=== PATIENT | male | born 1980 | race Caucasian/White ===

== ENCOUNTER 2018-01-07 12:34 | Emergency (ER) | payer MEDICAID, SELFPAY ==
[2018-01-07 12:52] VITALS: BP 136/85; PULSE 89; RESP 16; TEMP 37.2; O2SAT 98
--- NOTE | 2018-01-08 08:27 | W.ED.FU ---
Patient came to the emergency department complaining of ear pain. Due to the acuity number of patients in the department, there was a wait for him to be seen. However, prior to my evaluating the patient he eloped. He did not discuss with nursing staff and or was secretarial staff outside the department aware of his departure. Patient was never evaluated by myself. He has reviewed nursing notes and did attempt to find the patient in the department, notified him already departed
== END 2018-01-07 15:45 ==
LOC: ER 17:02
PROVIDERS: Emergency Provider Physician Assistant
DX: Z53.29 Procedure and treatment not carried out because of patient's decision for other reasons (principal)

== ENCOUNTER 2018-07-15 07:49 | Emergency (ER) | payer MEDICAID, SELFPAY ==
[2018-07-15 07:59] VITALS: BP 161/93; PULSE 97; RESP 16; TEMP 36.4; O2SAT 97
--- NOTE | 2018-07-15 08:12 | DI.RAD_ITS ---
SYMPTOM/DIAGNOSIS: S/P TWISTING INJURY, FELL, PAIN, ? FX RIGHT ANKLE: There is soft tissue swelling greatest around the lateral malleolus. No acute fracture or ankle mortise widening is seen. There is an old non united fracture of the medial malleolus. IMPRESSION: Old medial malleolar fracture. No evidence of an acute fracture. RIGHT FOOT: No acute fracture or dislocation is seen. There are mild degenerative changes. IMPRESSION: No acute abnormality.
--- NOTE | 2018-07-15 08:13 | W.ED.GENAD ---
Discharge Plan Disposition Patient Disposition: HOME Condition: Stable Discharge Details Chief Complaint: Orthopedic Clinical Impression: Right ankle sprain, Ankle fracture, right Primary Care Provider: None,None ED Provider: Iraida Goodman Home Meds and New Rx's Prescriptions: New naproxen 250 mg tablet 250 mg PO BID PRN (Reason: pain) Qty: 20 RF: 0 Discharge Instructions Instructions: Ankle Fracture (ED), Ankle Sprain (ED) Additional Instructions: Alternate tylenol and naproxen as needed and directed for pain. Take the oxycodone for pain not relieved with tylenol or naproxen. You may only have an ankle sprain. Your xray noted an old ankle fracture. Since you have pain in this area, there may be a new fracture that is not evident on xray. Use your crutches for ambulation. Do not bear weight on your right ankle. Call orthopedics tomorrow morning to schedule follow-up appointment for reevaluation. Return immediately to the emergency department any worsening or new concerning symptoms. Referrals: Sae Farrell MD [ [facility] STAFF PHYSICIAN] - Discharge Data Discharge Date/Time-TO BE ENTERED AT DEPARTURE: 07/15/18 10:52 Discharge Physician: Iraida Goodman Medical Decision Making 38-year-old male w/ a h/o Reflex sympathetic dystrophy who presents with right ankle and foot pain after slipping while shoveling the driveway yesterday. Last dose of ibuprofen and Tylenol 3 hours ago. He has tenderness to palpation of the right lateral malleolus and right lateral dorsal foot. Neurovascularly intact. No deformity. No proximal leg or knee tenderness, edema or ecchymosis. We will send for right ankle and foot x-ray. 1010 -- X-rays reviewed and note a well-corticated fracture of the medial malleolus with 2 mm distraction which appears chronic. Patient initially complained of pain mainly in the right lateral ankle. He now states he also has pain in the medial ankle. Although this fracture appears old, with complaint of pain in this area, will treat as a possible new fracture. Posterior splint placed and patient given crutches. Patient placed on orthopedic follow-up list. Will send home with 2 tabs of oxycodone. Patient also requested a prescription for anti-inflammatories. Patient instructed to rest, ice, elevate and to call orthopedics tomorrow morning for a follow-up appointment for a re-evaluation and whether CT indicated at a later date for further evaluation. He is instructed to return here at any time if worse. Medical Records Medical records reviewed: Yes I reviewed the patient's medical records. Imaging Data Radiologic Study: Radiologist's impression: XR Right Ankle Complete, 3 or more Views EXAM DATE/TIME: 07/15/2018 8:13 AM FINDINGS: Bones/joints: Well-corticated fracture medial malleolus with 2 mm distraction. Appears chronic. Clinical correlation necessary. No acute fracture identified. Soft tissues: Lateral soft tissue swelling. IMPRESSION: 1. Well-corticated fracture medial malleolus with 2 mm distraction. Appears chronic. Clinical correlation necessary. 2. No acute fracture identified. 3. Lateral soft tissue swelling. XR Right Foot Complete, 3 or more Views EXAM DATE/TIME: 07/15/2018 8:13 AM FINDINGS: Bones/joints: No acute fracture. No dislocation. Soft tissues: Normal. IMPRESSION: No acute findings. HPI General Mode of arrival: ambulatory. Date/Time Provider Initiated Documentation: 07/15/18 08:02. Limitations to Documentation: no limitations. Information obtained by: patient. HPI Narrative: Patient is a 38-year-old male presents with right ankle and foot pain after twisting injury yesterday. Patient states he was at home shoveling his driveway when he twisted and rolled his ankle. Patient states he has a history of reflex sympathetic dystrophy status post a left foot and ankle fracture several years ago. Patient states he is easily prone to fractures in his legs due to this. He last took ibuprofen and Tylenol 3 hours ago at home. He denies any hip, knee or upper leg injury or pain. Related Data Home Medications Medication Instructions Recorded Confirmed naproxen 250 mg PO BID PRN #20 tab 07/15/18 Previous Rx's Medication Instructions Recorded naproxen 250 mg PO BID PRN #20 tab 07/15/18 Allergies Allergy/AdvReac Type Severity Reaction Status Date / Time codeine Allergy Intermediate Hives Unverified 07/15/18 08:03 General Stated Complaint: Orthopedic KENTRELL: 4 Review of Systems Review of Systems All systems reviewed & are unremarkable except as noted in HPI and below [facility] Medical History RSD lower limb (Acute) Angina pectoris (Chronic) Surgical History History of ankle surgery (Acute) History of foot surgery (Acute) Social History Smoking/Tobacco Use Status: Current every day Tobacco Type: cigarettes Smoking cigarettes per day: 5 Alcohol Intake: never Drug use: Never Substance use type: does not use Do you feel safe in your relationship?: Yes Exam Const General: cooperative, healthy appearing and no acute distress HENMT Head: normal to inspection Mouth: oral mucosae normal Eyes General: appearance normal, both eyes and all related structures Neck Neck: normal visual inspection Resp Effort & Inspection: normal respiratory effort and able to speak in complete sentences Cardio Rate: regular rate Skin General skin exam: no rashes or lesions noted Neuro General: alert, awake and oriented x3 Motor: muscle tone normal throughout Extrem Right lower extremity: knee Details: normal to inspection and normal ROM; no tenderness and no swelling, lower leg Details: normal to inspection and no edema; no tenderness, ankle Details: tenderness Location: of the lateral malleolus and anterolaterally, swelling Details: laterally and anteriorly and abnormal ROM Details: pain with active ROM and pain with passive ROM and foot Details: tenderness Location: of the dorsal foot, of the lateral foot and of the base of the 5th metatarsal and vascular exam Details: dorsalis pedis pulse present and posterior tibial pulse present Psych Appearance: grossly normal Affect: normal affect Course Vital Signs Temperature 97.5 F L 07/15/18 07:59 Pulse 97 H 07/15/18 07:59 Respiratory Rate 16 07/15/18 07:59 Blood Pressure 161/93 H 07/15/18 07:59 Pulse Oximetry 97 07/15/18 07:59 Temperature 97.5 F L 07/15/18 07:59 Temperature Source Skin 07/15/18 07:59 Pulse 97 H 07/15/18 07:59 Respiratory Rate 16 07/15/18 07:59 Respiratory Effort Non-Labored 07/15/18 07:59 Blood Pressure 161/93 H 07/15/18 07:59 Blood Pressure Position Sitting 07/15/18 07:59 Pulse Oximetry 97 07/15/18 07:59 Pain Level 10 07/15/18 08:03 Procedures Orthopedic Splinting/Casting Injury #1: Side: right Lower Extremity Injury Location: ankle Lower Extremity Immobilizer: posterior splint Other Orthopedic Equipment: crutches
--- NOTE | 2018-07-15 08:19 | ED.GENADUL_ITS ---
Discharge Plan Disposition Patient Disposition: HOME Condition: Stable Discharge Details Chief Complaint: Orthopedic Clinical Impression: Right ankle sprain, Ankle fracture, right Primary Care Provider: None,None ED Provider: Iraida Goodman Home Meds and New Rx's Prescriptions: New naproxen 250 mg tablet 250 mg PO BID PRN (Reason: pain) Qty: 20 RF: 0 Discharge Instructions Instructions: Ankle Fracture (ED), Ankle Sprain (ED) Additional Instructions: Alternate tylenol and naproxen as needed and directed for pain. Take the oxycodone for pain not relieved with tylenol or naproxen. You may only have an ankle sprain. Your xray noted an old ankle fracture. Since you have pain in this area, there may be a new fracture that is not evident on xray. Use your crutches for ambulation. Do not bear weight on your right ankle. Call orthopedics tomorrow morning to schedule follow-up appointment for reevaluation. Return immediately to the emergency department any worsening or new concerning symptoms. Referrals: Sae Farrell MD [ [facility] STAFF PHYSICIAN] - Discharge Data Discharge Date/Time-TO BE ENTERED AT DEPARTURE: 07/15/18 10:52 Discharge Physician: Iraida Goodman Medical Decision Making 38-year-old male w/ a h/o Reflex sympathetic dystrophy who presents with right ankle and foot pain after slipping while shoveling the driveway yesterday. Last dose of ibuprofen and Tylenol 3 hours ago. He has tenderness to palpation of the right lateral malleolus and right lateral dorsal foot. Neurovascularly intact. No deformity. No proximal leg or knee tenderness, edema or ecchymosis. We will send for right ankle and foot x-ray. 1010 -- X-rays reviewed and note a well-corticated fracture of the medial malleolus with 2 mm distraction which appears chronic. Patient initially complained of pain mainly in the right lateral ankle. He now states he also has pain in the medial ankle. Although this fracture appears old, with complaint of pain in this area, will treat as a possible new fracture. Posterior splint placed and patient given crutches. Patient placed on orthopedic follow-up list. Will send home with 2 tabs of oxycodone. Patient also requested a prescription for anti-inflammatories. Patient instructed to rest, ice, elevate and to call orthopedics tomorrow morning for a follow-up appointment for a re-evaluation and whether CT indicated at a later date for further evaluation. He is instructed to return here at any time if worse. Medical Records Medical records reviewed: Yes I reviewed the patient's medical records. Imaging Data Radiologic Study: Radiologist's impression: XR Right Ankle Complete, 3 or more Views EXAM DATE/TIME: 07/15/2018 8:13 AM FINDINGS: Bones/joints: Well-corticated fracture medial malleolus with 2 mm distraction. Appears chronic. Clinical correlation necessary. No acute fracture identified. Soft tissues: Lateral soft tissue swelling. IMPRESSION: 1. Well-corticated fracture medial malleolus with 2 mm distraction. Appears chronic. Clinical correlation necessary. 2. No acute fracture identified. 3. Lateral soft tissue swelling. XR Right Foot Complete, 3 or more Views EXAM DATE/TIME: 07/15/2018 8:13 AM FINDINGS: Bones/joints: No acute fracture. No dislocation. Soft tissues: Normal. IMPRESSION: No acute findings. HPI General Mode of arrival: ambulatory . Date/Time Provider Initiated Documentation: 07/15/18 08:02 . Limitations to Documentation: no limitations . Information obtained by: patient . HPI Narrative: Patient is a 38-year-old male presents with right ankle and foot pain after twisting injury yesterday. Patient states he was at home shoveling his driveway when he twisted and rolled his ankle. Patient states he has a history of reflex sympathetic dystrophy status post a left foot and ankle fracture several years ago. Patient states he is easily prone to fractures in his legs due to this. He last took ibuprofen and Tylenol 3 hours ago at home. He denies any hip, knee or upper leg injury or pain. Related Data Home Medications Medication Instructions Recorded Confirmed naproxen 250 mg PO BID PRN #20 tab 07/15/18 Previous Rx's Medication Instructions Recorded naproxen 250 mg PO BID PRN #20 tab 07/15/18 Allergies Allergy/AdvReac Type Severity Reaction Status Date / Time codeine Allergy Intermediate Hives Unverified 07/15/18 08:03 General Stated Complaint: Orthopedic KENTRELL: 4 Review of Systems Review of Systems All systems reviewed & are unremarkable except as noted in HPI and below [facility] Medical History RSD lower limb (Acute) Angina pectoris (Chronic) Surgical History History of ankle surgery (Acute) History of foot surgery (Acute) Social History Smoking/Tobacco Use Status: Current every day Tobacco Type: cigarettes Smoking cigarettes per day: 5 Alcohol Intake: never Drug use: Never Substance use type: does not use Do you feel safe in your relationship?: Yes Exam Const General: cooperative, healthy appearing and no acute distress HENMT Head: normal to inspection Mouth: oral mucosae normal Eyes General: appearance normal, both eyes and all related structures Neck Neck: normal visual inspection Resp Effort & Inspection: normal respiratory effort and able to speak in complete sentences Cardio Rate: regular rate Skin General skin exam: no rashes or lesions noted Neuro General: alert, awake and oriented x3 Motor: muscle tone normal throughout Extrem Right lower extremity: knee Details: normal to inspection and normal ROM; no tenderness and no swelling, lower leg Details: normal to inspection and no edema; no tenderness, ankle Details: tenderness Location: of the lateral malleo kylie and anterolaterally, swelling Details: laterally and anteriorly and abnormal ROM Details: pain with active ROM and pain with passive ROM and foot Details: tenderness Location: of the dorsal foot, of the lateral foot and of the base of the 5th metatarsal and vascular exam Details: dorsalis pedis pulse present and posterior tibial pulse present Psych Appearance: grossly normal Affect: normal affect Course Vital Signs Temperature 97.5 F L 07/15/18 07:59 Pulse 97 H 07/15/18 07:59 Respiratory Rate 16 07/15/18 07:59 Blood Pressure 161/93 H 07/15/18 07:59 Pulse Oximetry 97 07/15/18 07:59 Temperature 97.5 F L 07/15/18 07:59 Temperature Source Skin 07/15/18 07:59 Pulse 97 H 07/15/18 07:59 Respiratory Rate 16 07/15/18 07:59 Respiratory Effort Non-Labored 07/15/18 07:59 Blood Pressure 161/93 H 07/15/18 07:59 Blood Pressure Position Sitting 07/15/18 07:59 Pulse Oximetry 97 07/15/18 07:59 Pain Level 10 03/24/19 08:03 Procedures Orthopedic Splinting/Casting Injury #1: Side: right Lower Extremity Injury Location: ankle Lower Extremity Immobilizer: posterior splint Other Orthopedic Equipment: crutches
--- NOTE | 2018-07-15 09:13 | DI.VRAD_ITS ---
EXAM: XR Right Ankle Complete, 3 or more Views EXAM DATE/TIME: 07/15/2018 8:13 AM CLINICAL HISTORY: 38 years old, male; Signs and symptoms; Other: S/P twisting injury r ankle, R/O acute fracture TECHNIQUE: Imaging protocol: XR Right ankle 3 or more views. COMPARISON: No relevant prior studies available. FINDINGS: Bones/joints: Well-corticated fracture medial malleolus with 2 mm distraction. Appears chronic. Clinical correlation necessary. No acute fracture identified. Soft tissues: Lateral soft tissue swelling. IMPRESSION: 1. Well-corticated fracture medial malleolus with 2 mm distraction. Appears chronic. Clinical correlation necessary. 2. No acute fracture identified. 3. Lateral soft tissue swelling. Dictated and Authenticated by: Bessy Bearden MD. Ordering:JOSE ALBERTO Khoury MD
--- NOTE | 2018-07-15 09:19 | DI.VRAD_ITS ---
EXAM: XR Right Foot Complete, 3 or more Views EXAM DATE/TIME: 07/15/2018 8:13 AM CLINICAL HISTORY: 38 years old, male; Signs and symptoms; Other: S/P twisting injury r ankle/foot, R/O fracture TECHNIQUE: Imaging protocol: XR Right foot 3 or more views. COMPARISON: No relevant prior studies available. FINDINGS: Bones/joints: No acute fracture. No dislocation. Soft tissues: Normal. IMPRESSION: No acute findings. Dictated and Authenticated by: Bessy Bearden MD. Ordering:JOSE ALBERTO Khoury MD
[2018-07-15] MEDS: oxyCODONE 5 MG TAB (10:15)
[2018-07-15] MEDS: oxyCODONE 5 MG TAB 10 MG PO (10:30)
== END 2018-07-15 10:52 | disposition home or self-care (01) ==
PROVIDERS: Emergency Provider Physician Assistant
DX: S93.401A Sprain of unspecified ligament of right ankle, initial encounter (principal); W00.0XXA Fall on same level due to ice and snow, initial encounter; Z87.81 Personal history of (healed) traumatic fracture; G90.521 Complex regional pain syndrome I of right lower limb
CPT/HCPCS: 99284; 73610; 73630; 99283; E0114

== ENCOUNTER 2019-05-20 23:13 | Emergency (ER) | payer MEDICAID, SELFPAY ==
[2019-05-20 23:22] VITALS: BP 160/110; PULSE 107; RESP 18; TEMP 37; O2SAT 99
--- NOTE | 2019-05-20 23:29 | W.ED.GENAD ---
Discharge Plan Disposition Patient Disposition: HOME Condition: Good Discharge Details Chief Complaint: DentalOral Clinical Impression: Tooth fractures, Dental infection Primary Care Provider: None,None ED Provider: Tab Mckeon Meds and New Rx's Prescriptions: New Oxycodone, 4 Tabs/Btl [Roxicodone, 4 Tabs/Btl] 5 mg PO BID Qty: 4 RF: 0 amoxicillin-pot clavulanate [Augmentin] 875-125 mg tablet 1 tab PO BID Qty: 20 RF: 0 Continued naproxen 250 mg tablet 250 mg PO BID PRN (Reason: pain) Qty: 20 RF: 0 Discharge Instructions Instructions: Dental Abscess (ED), Acute Dental Trauma (ED) Additional Instructions: Neither the dental block or the infraorbital nerve block seems to be adequate for pain control. Therefore use oxycodone for pain tonight. Start Augmentin for infection. Call dentistry in the morning for follow-up. Return to ED for fever, facial swelling/redness, difficulty breathing, inability to swallow. Medical Decision Making Patient here with multiple acute tooth fractures involving the front upper teeth. Gingival tenderness and edema but no overt abscess. He reports squeezing pus out earlier. Face is normal other than tenderness in the maxilla area on the right. [id number] pain medicine not helping. Discussed individual alveolar dental block versus infraorbital block. Patient more comfortable with dental block. Benzocaine applied to the mucosal membrane. Dental blocks attempted x2 with inadequate pain relief. Patient verbally consented to infraorbital block. This was done through the oral mucosal membranes as opposed to through the face. Notch palpated and needle felt with good placement of bupivacaine and area. Patient obtained facial and lip anesthesia completely but continued to complain of throbbing pain. Patient will be referred to dentistry. He is started on Augmentin. He is given for oxycodone to go home with for use tonight and tomorrow until he can get into dentistry. State information sheet given on narcotics. Informed consent signed. Patient asked to return for fever, increased facial swelling or redness, difficulty breathing, inability to swallow. HPI General Mode of arrival: ambulatory. Date/Time Provider Initiated Documentation: 05/20/19 23:29. Limitations to Documentation: no limitations. Information obtained by: patient and RN notes reviewed. HPI Narrative: Patient presents to ED with right upper dental pain that has been present for a couple of days after breaking off a couple of his teeth biting into a chocolate chip cookie. Acutely worse this afternoon and unbearable tonight. Reports squeezing pus out of his gum earlier this evening. Has been using Orajel, Tylenol, Motrin without relief. Denies fever, facial swelling, redness. No difficulty breathing. Hard to eat or drink because of pain. Has poor dentition throughout and has chronic dental pain but this is much worse than he is ever experienced. Related Data Home Medications Medication Instructions Recorded Confirmed naproxen 250 mg PO BID PRN #20 tab 07/15/18 05/21/19 amoxicillin-pot clavulanate 1 tab PO BID #20 tab 05/21/19 [Augmentin] oxyCODONE, 4 tabs/btl [Roxicodone, 5 mg PO BID #4 tab 05/21/19 4 tabs/btl] Previous Rx's Medication Instructions Recorded naproxen 250 mg PO BID PRN #20 tab 07/15/18 amoxicillin-pot clavulanate 1 tab PO BID #20 tab 05/21/19 [Augmentin] oxyCODONE, 4 tabs/btl [Roxicodone, 5 mg PO BID #4 tab 05/21/19 4 tabs/btl] Allergies Allergy/AdvReac Type Severity Reaction Status Date / Time codeine Allergy Intermediate Hives Unverified 05/21/19 00:05 General KENTRELL: 4 Review of Systems Constitutional Constitutional: Denies fever(s) ENT Ears, Nose, Mouth, and Throat: Reports dental pain, Denies lip swelling, Denies neck pain, Denies throat swelling and Denies tongue swelling Cardiovascular Cardiovascular: Denies dyspnea Respiratory Respiratory: Denies dyspnea Musculoskeletal Musculoskeletal: Denies neck pain Allergic/Immunologic Allergic/Immunologic: Denies lip swelling, Denies throat swelling and Denies tongue swelling [facility] Medical History RSD lower limb (Acute) Surgical History History of ankle surgery (Acute) History of foot surgery (Acute) Social History Smoking/Tobacco Use Status: Current every day Tobacco Type: cigarettes Alcohol Intake: never Drug use: Never Substance use type: does not use Do you feel safe at home: Yes Do you feel safe in your relationship?: Yes Exam Const General: cooperative and acute distress (pain) Orientation: alert and oriented x3 HENMT Head: normocephalic and atraumatic Face and sinus: no erythema, no edema, no fluctuance and tenderness on the right maxilla Mouth: oral mucosae normal, lip normal and tongue normal Teeth and gingiva: gingiva abnormal edematous (right upper) and tender; without any purulent discharge, poor dentition and other (chronic decay with acute fractures of teeth 4,5,6 at gumline) Neck Neck: trachea midline and supple Procedures Nerve Block Nerve Block 1: Local Anesthetic: Bupivicaine 0.5% Amount of anesthesia used (mL): 3 Side: right Intraoral Nerve Block: supraperiosteal Procedure Successful: No Patient Tolerated Procedure: no complications Complications: inadequate anesthesia Additional Comments: two attempts at blocking just the teeth involved as patient not comfortable with infra orbital block; unsuccessful Nerve Block 2: Local Anesthetic: Bupivicaine 0.5% Amount of anesthesia used (mL): 2.5 Side: right Intraoral Nerve Block: infraorbital Patient Tolerated Procedure: no complications Complications: inadequate anesthesia Additional Comments: face and lip completely numb but still having pain
[2019-05-21] MEDS: Benzocaine 20% Gel 30 GM JAR MM (00:04)
[2019-05-21] MEDS: Bupivacaine 0.5% Pres-Free 30 ML VIAL IJ (00:04)
[2019-05-21] MEDS: Amoxicillin 875/Clav. 125 TAB PO (01:03)
== END 2019-05-21 01:15 | disposition home or self-care (01) ==
LOC: ER 05-21 01:11
PROVIDERS: Emergency Provider Emergency Medicine
DX: S02.5XXA Fracture of tooth (traumatic), initial encounter for closed fracture (principal); X58.XXXA Exposure to other specified factors, initial encounter; K04.7 Periapical abscess without sinus
CPT/HCPCS: 64450

== ENCOUNTER 2023-05-03 22:34 | Emergency (ER) | payer MEDICAID, SELFPAY ==
[2023-05-03 22:42] VITALS: BP 159/103; PULSE 84; RESP 18; TEMP 37.1; O2SAT 98
--- NOTE | 2023-05-03 22:45 | DI.RAD_ITS ---
Exam(s) XR FOREARM LT EXAM: XR FOREARM LT CLINICAL HISTORY: laceration, eval foreign body. TECHNIQUE: 2D digital imaging was performed. COMPARISON: No exams were available for comparison FINDINGS: Two views. No evidence of fracture or dislocation. No radiopaque foreign body. Bone density normal. No osseou s lesions IMPRESSION: No acute osseous findings in the forearm bones. No radiopaque foreign body. DATA REPOSITORY: RADIATION DOSE DELIVERED:
--- NOTE | 2023-05-03 23:00 | ED.GENADUL_ITS ---
HPI General Stated Complaint: Laceration Mode of arrival: ambulatory. KENTRELL: 3 Date/Time Provider Initiated Documentation: 05/03/23 22:41. Limitations to Documentation: no limitations. Information obtained by: patient. HPI Narrative: 43yo previously healthy male last tetanus 1 year ago presenting for laceration. Was working on a washer, hand slipped, and he cut his left forearm. Difficult t o control bleeding at home. No numbness, tingling, or weakness in his left hand. Denies injuries elsewhere. Was in his usual state of health prior to this event. Related Data Home Medications Medication Instructions Recorded Confirmed naproxen 250 mg tablet 250 mg PO BID PRN pain #20 tabs 07/15/18 05/03/23 buprenorphine 12 mg-naloxone 3 mg film 05/03/23 sublingual film (Suboxone) Previous Rx's Medication Instructions Recorded naproxen 250 mg tablet 250 mg PO BID PRN pain #20 tabs 07/15/18 Allergies Allergy/AdvReac Type Severity Reaction Status Date / Time codeine Allergy Intermediate Hives Unverified 05/03/23 22:45 Review of Systems Narrative: see HPI PFSH All Active Problems (Updated 05/03/23 @ 23:06 by Leigh Ann Shay MD) Laceration of forearm (Acute) Medical History (Updated 05/03/23 @ 23:06 by Leigh Ann Shay MD) RSD lower limb Surgical History History of foot surgery History of ankle surgery Social History Smoking/Tobacco Use Status: Current every day Tobacco Type: cigarettes Smoking risk assessment performed?: Yes Alcohol Intake: never Drug use: Never Substance use type: does not use Do you feel safe at home: Yes Do you feel safe in your relationship?: Yes Exam Narrative Exam Narrative: General: Alert, well appearing, well nourished, in no acute distress. Head: Normocephalic, atraumatic Neck: Trachea midline, ?Neck supple. Cardiac: ?No cyanosis. Resp:Speaking in full sentences. No respiratory distress. Abd: ?Non-distended Extremities: Distal interior left forearm wtih 3cm by 2 cm linear v-shaped laceration. Hemostatic. Full sensation to light touch and 2 point discrimination throughout distal LUE including all digits. Normal color. Good strength in left hand, digits, wrist, symmetric compared to right. Symmetric radial pulses. Neurologic: GCS 15. ? Moves all extremities freely against gravity Course Vital Signs Vital signs: Vital Signs Temperature 37.1 C 05/03/23 22:42 Pulse 84 05/03/23 22:42 Respiratory Rate 18 05/03/23 22:42 Blood Pressure 159/103 H 05/03/23 22:42 Pulse Oximetry 98 05/03/23 22:42 Temperature 37.1 C 05/03/23 22:42 Temperature Source Skin 05/03/23 22:42 Pulse 84 05/03/23 22:42 Respiratory Rate 18 05/03/23 22:42 Respiratory Effort Normal 05/03/23 22:44 Blood Pressure 159/103 H 05/03/23 22:42 Blood Pressure Position Sitting 05/03/23 22:42 Pulse Oximetry 98 05/03/23 22:42 Oxygen Delivery Method Room Air 05/03/23 22:42 Oxygen Flow Rate 0 05/03/23 22:42 Procedures Laceration Laceration 1: Site: upper extremity Side (If applicable): left Size (cm): 5 Description: linear and flap Depth: simple, single layer Local Anesthetic: Lidocaine 2% and with Epi Amount of anesthesia used (mL): 12 Pre-repair: wound explored, irrigated extensively and deep structures intact Skin layer closed with: nylon Size (cm): 5-0 Number of sutures: 8 Technique: simple, interrupted Medical Decision Making 43yo previously healthy male last tetanus 1 year ago presenting for laceration. Vital signs reassuring on arrival, bleeding controlled. Hemodynamically stable, would not get labs/CBC/T&S. Distal interior left forearm wtih 4cm by 4 cm linear v-shaped laceration. Hemostatic. Full sensation to light touch and 2 point discrimination throughout distal LUE including all digits. Normal color. Good strength in left hand, digits, wrist, symmetric compared to right. Symmetric radial pulses. Not concerned for neurovasular injury. No indication for CTA. XR forearm independently reviewed, no retained foreign body on my view, agree with radiology read below. 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 Laceration repaired, tolerated well. Discharged home; discharge instructions and return precautions were reviewed with patient who verbalized understanding. All questions were answered and he is in full agreement with the plan. Imaging Data Radiologic Study: Imaging: X-Ray Radiologist's impression: IMPRESSION: No radiopaque foreign body is seen. Quality:SDOH Health Related Social Needs: No Data to Display Discharge Plan Disposition Patient Disposition: Home Condition: Good Discharge Details Clinical Impression: Laceration of forearm Primary Care Provider: None,None ED Provider: Leigh Ann Shay Home Meds and New Rx's Prescriptions: No Action naproxen 250 mg tablet 250 mg PO BID PRN (Reason: pain) Qty: 20 0RF buprenorphine-naloxone [Suboxone] 12-3 mg film Patient Comments: PLACE TWO FILMS UNDER THE TONGUE EVERY DAY Discharge Instructions Instructions: Laceration (ED) Additional Instructions: Tylenol and/or ibuprofen over the counter for pain; follow the directions on the bottle. Stitches out in 7-10 days; PCP office, urgent care, or in the ED. Return to the ED for new or worsening symptoms including fever, numbness/weakness/tingling in your left hand, thick green or white discharge from your cut, or if you have any other concerns.
--- NOTE | 2023-05-03 23:51 | DI.VRAD_ITS ---
PROCEDURE INFORMATION: Exam: XR Left Forearm Exam date and time: 05/03/2023 23:19 Age: 43 years old Clinical indication: Injury or trauma and screening exam; Laceration, eval foreign body; Wrist; Left TECHNIQUE: Imaging protocol: Radiologic exam of the left forearm. Views: 2 views. COMPARISON: No relevant prior studies available. FINDINGS: Bones/joints: No acute fracture or subluxation. Soft tissues: No radiopaque foreign body is seen. Soft tissue swelling distally. IMPRESSION: No radiopaque foreign body is seen. Dictated and Authenticated by: Anai Dennis MD. Ordering:RANDOLPH Beltrán MD
== END 2023-05-04 00:39 | disposition home or self-care (01) ==
PROVIDERS: Emergency Provider Student in an Organized Health Care Education/Training Program
DX: S61.512A Laceration without foreign body of left wrist, initial encounter (principal); W45.8XXA Other foreign body or object entering through skin, initial encounter
CPT/HCPCS: 12002; 99283; 73090; 99284